=== PATIENT | female | born 1960 | race Caucasian/White ===

== ENCOUNTER 2016-05-20 22:26 | Emergency (ER) | payer BC ==
[~2016-05-20] VITALS: Ht 172.7 cm; Wt 97.3 kg
[~2016-05-20 22:26] MED LIST: BENICAR HCT1 TABLET PO; ESTRACE2 MG PO; Neurontin PO; Ultram PO
[2016-05-20] MEDS ORDERED: MEDROL DOSEPAK4 MG PO (22:47)
[2016-05-20 22:52] VITALS: BP 158/65
== END 2016-05-20 23:09 | disposition home or self-care (01) ==
LOC: EME 22:26
DX: L30.9 Dermatitis, unspecified (principal)
CPT/HCPCS: 99281; 99283; J7512

== ENCOUNTER 2017-01-01 19:05 | Observation (INO) | payer BC ==
[~2017-01-01] VITALS: Ht 170.2 cm; Wt 101.8 kg
[~2017-01-01 19:05] MED LIST changes: +MEDROL DOSEPAK4 MG PO
[2017-01-01 19:53] LABS: HEMATOCRIT 38.2 % (36.0-46.0); MCH 32.3 PG (29.0-34.0); MCHC 34.6 G/DL (30.0-36.0); MCV 93.4 FL (83-99); MEAN PLAT.VOLUME 9.1 uM^3 (9.5-12.4); PLATELET COUNT 291 K/uL (156-360); RBC DIS.WIDTH-CV 12.5 % (11.8-14.6); RBC DIS.WIDTH-SD 42.7 % (39-53); RED BLOOD COUNT 4.09 M/uL (3.80-5.20); WHITE BLOOD COUNT 8.7 K/uL (4.1-10.2)
[2017-01-01 20:10] LABS: CHLORIDE 103 mEq/L (99-109); POTASSIUM 3.9 mEq/L (3.7-5.4); SODIUM 142 mEq/L (136-147)
[2017-01-01 20:11] LABS: GLUCOSE 102 mg/dL (70-99)
[2017-01-01 20:13] LABS: ANION GAP 14 MEQ/L (2-14)
[2017-01-01 20:15] LABS: GFR ESTIMATE (CALCULATED) > 59 mL/min/
[2017-01-01 20:16] LABS: UREA NITROGEN (BUN) 14 mg/dL (9-23)
[2017-01-01 20:19] LABS: TROP-I INTERPRETATION NEGATIVE; TROPONIN-I < 0.01 ng/mL (0.0-0.30)
[2017-01-01] MEDS ORDERED: LYRICA75 MG PO ×2 (21:57)
[2017-01-01] MEDS ORDERED: ESTRACE1 MG PO (21:57)
[2017-01-01] MEDS ORDERED: BENICAR HCT 201 EACH PO (21:58)
[2017-01-01] MEDS ORDERED: CYANOCOBAL1000 MCG/2 IM (21:58)
[2017-01-01 23:32] LABS: TOTAL BILIRUBIN 0.3 mg/dL (0.0-1.0)
[2017-01-01 23:33] LABS: ALKALINE PHOSPHATASE 64 IU/L (3-129)
[2017-01-01 23:36] LABS: DIRECT BILIRUBIN 0.1 mg/dL (0.0-0.3)
[2017-01-01 23:37] LABS: LIPASE 24 U/L (1.0-51.0)
[2017-01-02 00:45] VITALS: BP 134/66
[2017-01-02 01:03] LABS: D-DIMER ELISA < 150.00 ng/mLDDU (<230)
[2017-01-02 02:56] LABS: TROP-I INTERPRETATION NEGATIVE; TROPONIN-I < 0.01 ng/mL (0.0-0.30)
[2017-01-02 05:24] VITALS: BP 128/66
[2017-01-02 08:07] VITALS: BP 106/58
[2017-01-02 09:33] LABS: TROP-I INTERPRETATION NEGATIVE; TROPONIN-I < 0.01 ng/mL (0.0-0.30)
[2017-01-02 12:00] VITALS: BP 123/72
[2017-01-02] MEDS ORDERED: ASPIRIN81 M2 PO (12:43)
== END 2017-01-02 13:42 | disposition home or self-care (01) ==
LOC: EME 19:05 → EDOF 22:57 → 5WEST 22:57 → EDOF 22:57 → ENRESERV 23:05 → 5WEST 01-02 00:30 → EDOF 01-02 00:30 → 5WEST 01-02 13:42
PROVIDERS: Hospitalist
DX: R07.89 Other chest pain (principal); I10 Essential (primary) hypertension; E78.5 Hyperlipidemia, unspecified; G60.9 Hereditary and idiopathic neuropathy, unspecified; Z90.49 Acquired absence of other specified parts of digestive tract; Z90.710 Acquired absence of both cervix and uterus; Z82.49 Family history of ischemic heart disease and other diseases of the circulatory system
CPT/HCPCS: 71020; 80048; 80076; 83690; 84484; 85027; 85379; 93005; 99281; 99284; G0378; J2270